=== PATIENT | female | born 1955 | race Caucasian/White ===

== ENCOUNTER 2016-12-08 22:30 | Emergency (ER) | payer OTHER ==
--- NOTE | ~2016-12-08 | CR94 ---
[facility] A Service of [facility] & [facility] RADIOLOGY TEXT RESULTS PATIENT: ZEE WILCOX LOCATION: SED : 57 UNIT #: [id number] AGE: [address]: Alireza Plummer MD SEX: F ORDER DR: [id number] [address] [address] [id number] E MR#: [id number] Acc #: [id number] NAME: ZEE WILCOX : 1955 SEX: F STUDY DATE/TIME: 12/08/2016 23:56 UNIT: SED ROOM: STUDY DESCRIPTION: CR Elbow Min 3 Views Rt Attending Physician: Alireza Plummer M.D. Ordering Physician: Alireza Plummer M.D. Primary Care Physician: Mojgan Espana M.D. MEDICAL IMAGING REPORT This report is preliminary unless electronic signature is present. EXAM Right elbow 3 views HISTORY Fell in bathtub this evening. Posterior elbow pain. FINDINGS 3 views of the right elbow demonstrate no fracture or dislocation. Minimal hypertrophic changes at the medial elbow joint. No joint effusion. Soft tissues unremarkable. IMPRESSION No acute findings Dictated by... Ahmet Jimenez M.D. THIS IS AN ELECTRONICALLY VERIFIED REPORT Ahmet Jimenez M.D. at 12/10/2016 10:34 PM KEYANNA/amy TD: 12/09/2016 06:28 JOB #: [id number] MEDICAL IMAGING REPORT Page 1 of 1
[~2016-12-08 22:30] MED LIST: ACIPHEX20 MG PO; AHIST25 MG PO; AMITRYPTYLINE PO; ANTIVERT PO; ATARAX PO; BACTRIM DS TABL1 TA1 PO; BENTYL20 M1 PO; COQ-1010 MG PO; FLEXERIL10 M1 PO; FLEXERIL10 MG PO; FLONASE 0.05% N16 G1; GARCINIA CAMBO1 EACH PO; GLUCOSAMINE & C1 CAP PO; HYDROXYZINE HCL25 M1 PO; LIPITOR40 MG PO; LISINOPRIL20 MG PO; LUTEIN10 MG PO; MELATONIN5 M3 SL; MEVACOR PO; PERCOCET5/325 PO; PHENERGAN25 M1 PO; PREMARIN PO; PREMARIN0.625 MG PO; PREVACID PO; PRINIVIL20 M1 PO; PROTONIX PO; SINGULAIR; SINGULAIR PO; TEMOVATE 0.05%15 G1 EXT; ULTRAM PO; ZOFRAN ODT4 MG PO; ZOFRAN ODT4 MG/UDTAB PO; [UNRECOGNIZED DRUG - REMARK]
== END 2016-12-09 00:39 | disposition home or self-care (01) ==
LOC: SED 22:30
DX: S50.01XA Contusion of right elbow, initial encounter (principal); W16.212A Fall in (into) filled bathtub causing other injury, initial encounter; Y92.009 Unspecified place in unspecified non-institutional (private) residence as the place of occurrence of the external cause
CPT/HCPCS: 73080; 99283

== ENCOUNTER 2017-02-20 06:44 | Emergency (ER) | payer OTHER ==
[~2017-02-20] VITALS: Ht 160 cm; Wt 90.7 kg
[~2017-02-20 06:44] MED LIST changes: -BONIVA150 MG PO; -MELATONIN5 M1 PO; -MONTELUKAST SOD10 MG PO; -TRAMADOL HCL50 M2 PO; -[UNRECOGNIZED DRUG - OTHER] AU
[2017-02-20] MEDS ORDERED: AMITRYPTYLINE PO (06:56)
[2017-02-20] MEDS ORDERED: LIPITOR40 MG PO (06:57)
[2017-02-20] MEDS ORDERED: [UNRECOGNIZED DRUG - OTHER] AU (06:57)
[2017-02-20] MEDS ORDERED: BONIVA150 MG PO (06:58)
[2017-02-20] MEDS ORDERED: LUTEIN10 MG PO (06:59)
[2017-02-20] MEDS ORDERED: PRINIVIL20 M1 PO (06:59)
[2017-02-20] MEDS ORDERED: MELATONIN5 M1 PO (07:00)
[2017-02-20] MEDS ORDERED: PREMARIN0.625 MG PO (07:00)
[2017-02-20] MEDS ORDERED: MONTELUKAST SOD10 MG PO (07:00)
[2017-02-20] MEDS ORDERED: PHENERGAN25 M1 PO (07:01)
[2017-02-20] MEDS ORDERED: TRAMADOL HCL50 M2 PO (07:01)
== END 2017-02-20 07:40 | disposition home or self-care (01) ==
LOC: SED 06:44
DX: H10.9 Unspecified conjunctivitis (principal); K21.9 Gastro-esophageal reflux disease without esophagitis; F41.9 Anxiety disorder, unspecified; Z90.710 Acquired absence of both cervix and uterus; Z79.899 Other long term (current) drug therapy; Z88.0 Allergy status to penicillin; Z88.5 Allergy status to narcotic agent; Z88.1 Allergy status to other antibiotic agents; Z88.8 Allergy status to other drugs, medicaments and biological substances
CPT/HCPCS: 99283

== ENCOUNTER → 2017-02-20 | Outpatient (CLI) | payer OTHER ==
[~2017-02-20] MED LIST changes: +BONIVA150 MG PO; +MELATONIN5 M1 PO; +MONTELUKAST SOD10 MG PO; +TRAMADOL HCL50 M2 PO; +[UNRECOGNIZED DRUG - OTHER] AU
--- NOTE | ~2017-02-20 | BD1 ---
[facility] A Service of [facility] & [facility] RADIOLOGY TEXT RESULTS PATIENT: ZEE WILCOX LOCATION: [facility] : 57 UNIT #: [id number] AGE: [address]: Mojgan Espana MD SEX: F ORDER DR: [id number] [address] [address] [id number] O MR#: [id number] Acc #: [id number] NAME: ZEE WILCOX : 1955 SEX: F STUDY DATE/TIME: 02/20/2017 8:16 UNIT: [facility] ROOM: STUDY DESCRIPTION: BD Dexa Bone Dens 1+ Site Attending Physician: Mojgan Espana M.D. Referring Physician: Mojgan Espana M.D. Ordering Physician: Mojgan Espana M.D. Primary Care Physician: Mojgan Espana M.D. MEDICAL IMAGING REPORT This report is preliminary unless electronic signature is present. EXAM DXA scan 02/20/2017 HISTORY Status post menopause with no history of hormone replacement therapy beginning and 88 years ago. Hysterectomy at age 51 with removal of both ovaries. Osteopenia. Family history of breast carcinoma. History of osteoporosis in mother. Hypertension with blood pressure medication for 8 years. FINDINGS Bone mineral density in the lumbar spine from L1-L4 was 1.098 g/cm2 which is 0.7 standard deviations below the mean when compared to the young adult reference population which is within the range of normal. This is 0.3 standard deviations below the mean when compared to the age-matched population. Bone mineral density in the left femoral neck was 1.003 g/cm2 which is 0.3 standard deviations below the mean when compared to the young adult reference population which is within the range of normal. This is 0.4 standard deviations above the mean when compared to the age-matched population. Bone mineral density in the right femoral neck was 1.013 g/cm2 which is 0.2 standard deviations below the mean when compared to the young adult reference population which is within the range of normal. This is 0.5 standard deviations above the mean when compared to the age-matched population. IMPRESSION Bone mineral density in the lumbar spine and the hips bilaterally within the range of normal. Dictated by... Tucker Riley M.D. [facility] A Service of [facility] RADIOLOGY TEXT RESULTS PATIENT: ZEE WILCOX LOCATION: [facility] : 57 UNIT #: [id number] AGE: [address]: Mojgan Espana MD SEX: F ORDER DR: THIS IS AN ELECTRONICALLY VERIFIED REPORT Tucker Riley M.D. at 02/24/2017 2:12 PM KRT/pcl TD: 02/24/2017 00:49 JOB #: [id number] MEDICAL IMAGING REPORT Page 1 of 1
--- NOTE | ~2017-02-20 | MY11 ---
[facility] A Service [facility] RADIOLOGY TEXT RESULTS PATIENT: ZEE WILCOX LOCATION: [facility] : 57 UNIT #: [id number] AGE: [address]: Mojgan Espana MD SEX: F ORDER DR: [id number] [address] [address] [id number] O MR#: [id number] Acc #: [id number] NAME: ZEE WILCOX : 1955 SEX: F STUDY DATE/TIME: 02/20/2017 9:00 UNIT: [facility] ROOM: STUDY DESCRIPTION: MY Mammogram Screening Dig Raymond Attending Physician: Mojgan Espana M.D. Referring Physician: Mojgan Espana M.D. Ordering Physician: Mojgan Espana M.D. Primary Care Physician: Mojgan Espana M.D. MEDICAL IMAGING REPORT This report is preliminary unless electronic signature is present. EXAM Digital screening mammogram 02/20/2017 HISTORY 61-year-old woman strong family history, maternal aunt postmenopausal, daughter premenopausal. Annual screen. COMPARISON Mammograms date to 12/22/2005 with most recent 02/15/2015. FINDINGS Digital imaging of each breast was completed utilizing screening protocol. Review includes FDA-approved CAD device. Breast parenchyma is moderately dense somewhat heterogeneous with a generalized nodular pattern bilaterally. Subareolar duct ectasia is noted dominant in the left breast. There is a small nodular opacity projecting upper right breast middle third which is indeterminate at this time. Additional right breast imaging is therefore recommended to include a true lateral projection, exaggerated craniocaudal projection, high-resolution spot compression views and targeted right breast ultrasound. I see no interval occurring microcalcifications and no suspicious architectural deformity. IMPRESSION Incomplete mammographic evaluation. Additional right breast imaging is recommended. See complete report with recommendations. Patients over the age of 40 are entered into a reminder system with target due date for the next mammogram. A result letter will also be sent to the patient. [facility] A Service of [facility] RADIOLOGY TEXT RESULTS PATIENT: ZEE WILCOX LOCATION: [facility] : 57 UNIT #: [id number] AGE: [address]: Mojgan Espana MD SEX: F ORDER DR: BIRADS: 0 Incomplete: Additional right breast imaging recommended. Dictated by... Jarod Marino M.D. THIS IS AN ELECTRONICALLY VERIFIED REPORT Jarod Marino M.D. at 02/20/2017 12:01 PM ELISHA/catia TD: 02/20/2017 10:34 JOB #: [id number] MEDICAL IMAGING REPORT Page 1 of 1
== END | disposition home or self-care (01) ==
LOC: SMAM 07:59
DX: Z12.31 Encounter for screening mammogram for malignant neoplasm of breast (principal); M81.0 Age-related osteoporosis without current pathological fracture; M85.80 Other specified disorders of bone density and structure, unspecified site; Z80.3 Family history of malignant neoplasm of breast; Z78.0 Asymptomatic menopausal state
CPT/HCPCS: 77080; G0202

== ENCOUNTER → 2017-03-02 | Outpatient (CLI) | payer OTHER ==
[~2017-03-02] MED LIST changes: +BONIVA150 MG PO; +MELATONIN5 M1 PO; +MONTELUKAST SOD10 MG PO; +TRAMADOL HCL50 M2 PO; +[UNRECOGNIZED DRUG - OTHER] AU
--- NOTE | ~2017-03-02 | MY25 ---
[facility] A Service of [facility] & [facility] RADIOLOGY TEXT RESULTS PATIENT: ZEE WILCOX LOCATION: [facility] : 57 UNIT #: [id number] AGE: [address]: Mojgan Espana MD SEX: F ORDER DR: [id number] [facility] [address] [place], [place] [address] [id number] O MR#: [id number] Acc #: [id number] NAME: ZEE WILCOX : 1955 SEX: F STUDY DATE/TIME: 03/02/2017 14:58 UNIT: [facility] ROOM: STUDY DESCRIPTION: BON YEN W/ CAD UNI RT Attending Physician: Mojgan Espana M.D. Ordering Physician: Mojgan Espana M.D. Primary Care Physician: Mojgan Espana M.D. MEDICAL IMAGING REPORT This report is preliminary unless electronic signature is present EXAM Diagnostic right mammogram, 03/02/2017 INDICATION Nodular asymmetry in the upper right breast seen on recent screening exam. FINDINGS Spot compression right MLO view was obtained in addition to an exaggerated right CC view and a standard true lateral view. Study is reviewed with an FDA-approved CAD device. The study is compared with all the patient's prior mammograms at this facility dating back to 12/22/2005. Breast parenchyma shows scattered fibroglandular densities. Nodular asymmetry in the upper right breast effaces on the spot compression view today. Today's true lateral view is very similar to all of the patient's prior MLO views. No suspicious microcalcifications are seen. Benign lymph node in the deep upper outer right breast is stable. Findings were discussed with the patient at the time of her examination today. IMPRESSION Benign mammogram. No abnormality is confirmed in the right breast. Patient should continue routine yearly mammographic screening. BIRADS: 2 Benign finding Dictated by... Ector Morris Jr., M.D. THIS IS AN ELECTRONICALLY VERIFIED REPORT Ector Morris Jr., M.D. at 03/03/2017 7:20 AM [facility] A Service of [facility] & [facility] RADIOLOGY TEXT RESULTS PATIENT: ZEE WILCOX [id number] 57 UNIT #: [id number] AGE: [address]: Mojgan Espana MD SEX: F ORDER DR: TD: 03/03/2017 02:00 JOB #: [id number] MEDICAL IMAGING REPORT Page 1 of 1 COPY
== END | disposition home or self-care (01) ==
LOC: CMAM 14:30
DX: N63 Unspecified lump in breast (principal)
CPT/HCPCS: G0206

== ENCOUNTER 2017-04-03 17:31 | Emergency (ER) | payer OTHER ==
--- NOTE | ~2017-04-03 | CT13 ---
[facility] A Service of [facility] & [facility] RADIOLOGY TEXT RESULTS PATIENT: ZEE WILCOX LOCATION: SED : 57 UNIT #: [id number] AGE: [address]: Joshua Moran MD SEX: F ORDER DR: [id number] [facility] [address] [place], [place] [address] [id number] E MR#: [id number] Acc #: [id number] NAME: ZEE WILCOX : 1955 SEX: F STUDY DATE/TIME: 04/03/2017 18:33 UNIT: SED ROOM: STUDY DESCRIPTION: CT Angio Abdomen Attending Physician: Joshua Moran M.D. Ordering Physician: Martín Oakes M.D. Primary Care Physician: Mojgan Espana M.D. MEDICAL IMAGING REPORT This report is preliminary unless electronic signature is present EXAM CT angiogram of the abdomen INDICATION Abnormal chest x-ray demonstrating a contour abnormality of the mediastinum. Clinical concern for aortic aneurysm or dissection. Sudden onset atrial fibrillation. Chest pain today. FINDINGS Please see CT angiogram of the chest for results. Dictated by... Rohan Ho M.D. THIS IS AN ELECTRONICALLY VERIFIED REPORT Rohan Ho M.D. at 04/04/2017 9:30 PM ELIESER/catia TD: 04/04/2017 14:07 JOB #: [id number] MEDICAL IMAGING REPORT Page 1 of 1 COPY
--- NOTE | ~2017-04-03 | CT15 ---
[facility] A Service of [facility] RADIOLOGY TEXT RESULTS PATIENT: EZE WILCOX LOCATION: SED : 57 UNIT #: [id number] AGE: [address]: Joshua Moran MD SEX: F ORDER DR: [id number] [address] [address] [id number] E MR#: [id number] Acc #: [id number] NAME: ZEE WILCOX : 1955 SEX: F STUDY DATE/TIME: 04/03/2017 18:33 UNIT: SED ROOM: STUDY DESCRIPTION: CT Angio Chest Attending Physician: Joshua Moran M.D. Ordering Physician: Martín Oakes M.D. Primary Care Physician: Mojgan Espana M.D. MEDICAL IMAGING REPORT This report is preliminary unless electronic signature is present. EXAM Chest and abdomen CT with contrast angiography protocol 04/03/2017 INDICATION Abnormal chest x-ray demonstrating a contour abnormality of the mediastinum. Clinical concern for aortic aneurysm or dissection. Sudden onset atrial fibrillation, chest pain today. TECHNIQUE Contrast enhanced CT scan of the chest and abdomen was performed utilizing an angiography protocol. Sagittal and coronal reformats performed. This CT examination was performed with one or more of the following radiation dose reduction techniques: automatic exposure control, adjustment of mA and/or kV according to patient size, and iterative reconstruction. COMPARISON 01/10/2011. FINDINGS CT CHEST: There is mild emphysema. There is atelectatic change in the lung bases. No effusion or distinct pneumonia. Mild motion degradation. Aorta demonstrates no dissection. Independent origin of the left vertebral artery from the aortic arch noted as an anatomic variant. There is ectasia of the ascending aorta up to 3.5 cm. This is similar to the prior study when it measured about 3.4 cm. There is no adenopathy or pericardial effusion. CT ABDOMEN: The abdominal aorta demonstrates no aneurysm or dissection. Major branch vessels from the aorta are patent. Spleen, adrenal glands and pancreas unremarkable. Gallbladder unremarkable. There is fatty infiltration of the liver. Kidneys demonstrate no hydronephrosis. Incidental tiny renal cyst on the right. There is a tiny indeterminate STS. [facility] A Service of [facility] RADIOLOGY TEXT RESULTS PATIENT: ZEE WILCOX LOCATION: SED : 57 UNIT #: [id number] AGE: [address]: Joshua Moran MD SEX: F ORDER DR: posterior renal lesion on the left at the mid pole level measuring 6 mm. When compared to the 2011 study, however, it is stable to smaller and therefore benign based upon long-term stability. This is most characteristic of a hemorrhagic cyst. No adenopathy. Bowel unremarkable. Appendix normal. There is no distinct suspicious bone lesion. There are degenerative changes in the thoracic spine. IMPRESSION 1. There is no aortic aneurysm or dissection. There is ectasia of the ascending aorta measuring 3.5 cm not significantly changed. Abdominal aorta demonstrates no aneurysm or dissection. 2. Lungs demonstrate mild emphysema and scattered areas of atelectasis and/or scarring. No effusion. 3. Fatty infiltration of the liver. 4. Proteinaceous or hemorrhagic cyst in the left kidney is unchanged from 2011 as described above and therefore benign. Dictated by... Rohan Ho M.D. THIS IS AN ELECTRONICALLY VERIFIED REPORT Rohan Ho M.D. at 04/04/2017 9:27 PM ELIESER/catia TD: 04/04/2017 14:05 JOB #: [id number] MEDICAL IMAGING REPORT Page 1 of 1
--- NOTE | ~2017-04-03 | EKG ---
PATIENT: ZEE WILCOX UNIT #: [id number] Ventricular Rate: 85 BPM Atrial Rate: 85 BPM P-R Interval: 118 ms QRS Duration: 80 ms Q-T Interval: 380 ms QTC Calculation(Bezet): 452 ms P Merigold: -6 degrees Calculated R Mer[place]old: 56 degrees Calculated T Merigold: 47 degrees Diagnosis Line: Sinus rhythm with Possible Premature atrial Diagnosis Line: complexes with Aberrant conduction Diagnosis Line: Otherwise normal ECG Diagnosis Line: When compared with ECG of 22-MAR-2013 20:26, Diagnosis Line: Aberrant conduction is now Present Diagnosis Line: T wave inversion no longer evident in Anterior Diagnosis Line: leads Diagnosis Line: Confirmed by MALLORIE CHOWDARY MD ([id number]) on Diagnosis Line: 04/10/2017 10:36:57 AM INTERPRETING MD: RICARDA VALLECILLO
--- NOTE | ~2017-04-03 | CR72 ---
[facility] A Service of [facility] & [facility] RADIOLOGY TEXT RESULTS PATIENT: ZEE WILCOX LOCATION: SED : 57 UNIT #: [id number] AGE: [address]: Joshua Moran MD SEX: F ORDER DR: [id number] [address] [address] [id number] E MR#: [id number] Acc #: [id number] NAME: ZEE WILCOX : 1955 SEX: F STUDY DATE/TIME: 04/03/2017 17:35 UNIT: SED ROOM: STUDY DESCRIPTION: CR Chest Single View Portable Attending Physician: Joshua Moran M.D. Ordering Physician: Martín Oakes M.D. Primary Care Physician: Mojgan Espana M.D. MEDICAL IMAGING REPORT This report is preliminary unless electronic signature is present. EXAM AP chest COMPARISON August 27, [address] chest, abdomen and pelvis dated January 10, 2011. INDICATION 61-year-old female with stabbing midsternal chest pain and dyspnea which began 20 minutes prior to arrival today. FINDINGS There is new abnormal contour of the right paratracheal stripe which given the acute onset of symptoms could reflect a ruptured aneurysm. Heart size is normal. There is tortuosity of the ascending aorta. Favored to represent prominent breast shadow over the left lung base, there is hazy attenuation that appears new from comparison. This most likely reflects left basilar atelectasis and/or pleural effusion. Lungs otherwise appear clear. No evidence of pneumothorax. IMPRESSION 1. New abnormal contour of the right paratracheal stripe which could reflect aneurysm or possibly ruptured aneurysm of the ascending aorta. Differential diagnosis also includes adenopathy. Given the acute onset of symptoms, CT angiography of the chest is recommended for definitive characterization. 2. Hazy attenuation over left lung base favored to represent a prominent breast shadow. Left basilar atelectasis, pneumonia or pleural effusion are thought less likely but not entirely excluded. This could be better evaluated on CT. A courtesy call has been placed to the ER doctor caring for this patient to notify of these findings and recommendations. Martín Oakes was notified of these findings at 06:03 p.m. on April 03, 2017 and he acknowledged receipt. [facility] A Service of [facility] RADIOLOGY TEXT RESULTS PATIENT: ZEE WILCOX LOCATION: SED : 57 UNIT #: [id number] AGE: [address]: Joshua Moran MD SEX: F ORDER DR: Dictated by... Felix El M.D. THIS IS AN ELECTRONICALLY VERIFIED REPORT Felix El M.D. at 04/08/2017 10:43 PM HAILEY/catia TD: 04/04/2017 12:15 JOB #: [id number] MEDICAL IMAGING REPORT Page 1 of 1
[2017-04-03 17:55] LABS: BASOPHIL% 0.4 % (0-2.5); DIFF IND NO; EOSINOPHIL% 0.1 % (0.0-7.0); HEMATOCRIT 41.2 % (35.0-45.0); HEMOGLOBIN 13.9 gm/dL (12.0-16.0); LYMPHOCYTE# 3.2 X10e3 (1.0-3.5); LYMPHOCYTE% 29.6 % (17.0-45.0); MEAN CELL VOLUME 87.8 FL (83-96); MEAN CORPUSCULAR HEMOGLOBIN 29.6 PG (28-34); MEAN CORPUSCULAR HGB CONC 33.7 g/dL (30-36); MEAN PLATELET VOLUME 7.5 FL (6.5-11.5); MONOCYTE# 0.8 X10e3 (0-1.0); NEUTROPHIL# 6.9 X10e3 (1.5-7.1); NEUTROPHIL% 62.9 % (40-75); PLATELET COUNT 361 X10e3 (140-420); RED CELL DISTRIBUTION WIDTH 13.7 % (11.0-15.5)
[2017-04-03 18:01] LABS: INR 0.9; PROTHROMBIN TIME (PATIENT) 10.4 SECONDS (9.5-12.4)
[2017-04-03 18:03] LABS: POC - CKMB 1.5 ng/mL (0.0-7.9); POC - MYOGLOBIN 57.5 ng/mL (0.0-169.0); POC - TROPONIN <0.05 ng/mL (<=0.05)
[2017-04-03 18:08] LABS: PARTIAL THROMBOPLASTIN TIME 28.9 SECONDS (25.6-38.1)
[2017-04-03 18:10] LABS: ALBUMIN SERUM 4.3 g/dL (3.5-5.0); BILIRUBIN, DIRECT 0.1 mg/dL (0.0-0.2); BILIRUBIN,INDIRECT 0.2 mg/dL (0.0-0.9); BILIRUBIN,TOTAL 0.3 mg/dL (0.2-2.0); BUN/CREATININE RATIO 25.71; CALCIUM SERUM 9.8 mg/dL (8.4-10.2); CREATININE SERUM 0.7 mg/dL (0.6-1.4); GLOM FILT RATE Estimated 94.2 mL/min (>60); POTASSIUM 4.2 mmol/L (3.5-5.1)
[2017-04-03 19:24] LABS: POC - TROPONIN <0.05 ng/mL (<=0.05)
== END 2017-04-03 19:49 | disposition home or self-care (01) ==
LOC: SED 17:31
PROVIDERS: Emergency Medicine
DX: R07.89 Other chest pain (principal); I10 Essential (primary) hypertension; F17.200 Nicotine dependence, unspecified, uncomplicated; Z90.710 Acquired absence of both cervix and uterus; Z98.51 Tubal ligation status; Z88.1 Allergy status to other antibiotic agents; Z88.0 Allergy status to penicillin; Z88.5 Allergy status to narcotic agent; Z88.8 Allergy status to other drugs, medicaments and biological substances
CPT/HCPCS: 36415; 71010; 71275; 74175; 80048; 80076; 82553; 83874; 84484; 85025; 85610; 85730; 93005; 96374; 96375; 99285; J1170; J2060; J2405; J2550; Q9967